=== PATIENT | female | born 1995 | race Caucasian/White ===

== ENCOUNTER 2020-08-22 01:47 | Emergency (ER) | payer BC ==
[~2020-08-22] VITALS: Ht 160 cm; Wt 130.9 kg
[2020-08-22 01:51] VITALS: TEMP 98.5
[2020-08-22 02:29] LABS: BASO # 0.1 (0.0-0.2); BASO % 0.4 % (0.0-2.0); EOS # 0.1 (0.0-0.7); GRAN # 8.6 (1.4-6.5); GRAN % 63.1 % (42.2-75.2); HEMATOCRIT 42.4 % (37.0-47.0); HEMOGLOBIN 13.3 g/dl (12.5-16.0); LYMPH # 3.8 (1.2-3.4); MEAN CELL VOLUME 79 fl (80.0-100.0); MEAN CORPUSCULAR HEMOGLOBIN 25 pg (27.0-31.0); MEAN CORPUSCULAR HGB CONC 31 g/dl (33.0-37.0); MEAN PLATELET VOLUME 11.1 fl (7.4-10.4); MONO % 7.2 % (1.7-9.3); PLATELET COUNT 348 K/mm3 (130-400); RED BLOOD COUNT 5.37 M/mm3 (4.10-5.30); REDCELL DISTRIBUTION WIDTH-CV 20.7 % (11.5-14.5)
[2020-08-22 02:35] LABS: PH 6 (5-8); SQUAMOUS EPITHELIAL 0-2 /hpf; URINE APPEARANCE Hazy; URINE BACTERIA None Seen /hpf; URINE BILIRUBIN Negative (NEGATIVE); URINE BLOOD 1+ (NEGATIVE); URINE COLOR Yellow; URINE GLUCOSE Negative (NEGATIVE); URINE KETONE Negative (NEGATIVE); URINE LEUKOCYTE ESTERASE Negative (NEGATIVE); URINE NITRATE Negative (NEGATIVE); URINE PROTEIN(semi-quant) Negative (NEGATIVE); URINE RBC 0-2 /hpf; URINE UROBILINOGEN Negative (NEGATIVE); URINE WBC 0-2 /hpf
[2020-08-22 02:41] LABS: ALBUMIN 5.1 gm/dL (3.5-5.0); BILIRUBIN,TOTAL 0.5 mg/dL (0.0-1.0); CALCIUM 9.6 mg/dL (8.4-10.2); CREATININE, serum 0.75 (0.52-1.25); POTASSIUM 3.6 mmol/L (3.4-5.0); TOTAL PROTEIN 8.7 gm/dL (6.4-8.2)
[2020-08-22 02:45] LABS: COLLECTION METHOD CLEAN CATCH
[2020-08-22] MEDS ORDERED: PROTONIX 40MG T40 MG PO (03:55)
[2020-08-22 04:11] VITALS: BP 125/77; PULSE 90
== END 2020-08-22 04:15 | disposition home or self-care (01) ==
LOC: COL.ER 01:47
PROVIDERS: Emergency Medicine
DX: R10.11 Right upper quadrant pain (principal); R10.31 Right lower quadrant pain; Z88.8 Allergy status to other drugs, medicaments and biological substances
CPT/HCPCS: J2270; J2405; J7030; Q9967